=== PATIENT | male | born 1970 | race Caucasian/White ===

== ENCOUNTER 2021-05-31 15:52 | Emergency (ER) | payer BC ==
[2021-05-31] MEDS ORDERED: Boostrix 0.5 ML (Tdap) VIAL ONE (16:50)
== END 2021-05-31 17:43 | disposition home or self-care (01) ==
LOC: CSHERS 15:52
DX: S01.111A Laceration without foreign body of right eyelid and periocular area, initial encounter (principal); E78.5 Hyperlipidemia, unspecified; Z23 Encounter for immunization; W22.8XXA Striking against or struck by other objects, initial encounter
CPT/HCPCS: 12011; 70486; 90471; 90715

== ENCOUNTER 2021-09-19 14:42 | Emergency (ER) | payer BC ==
[2021-09-19] MEDS ORDERED: Lidocaine 1% w/Epinephrine 1:100K 20 ML VIAL ONE (15:03)
[2021-09-19] MEDS ORDERED: Bacitracin 1 PK ONE (16:08)
== END 2021-09-19 16:05 | disposition home or self-care (01) ==
LOC: CSHERS 14:42
DX: S01.01XA Laceration without foreign body of scalp, initial encounter (principal); E78.5 Hyperlipidemia, unspecified; W22.8XXA Striking against or struck by other objects, initial encounter
CPT/HCPCS: 12002